=== PATIENT | male | born 1960 | race Native Hawaiian/Other Pacific Islander ===

== ENCOUNTER 2018-08-08 07:12 | Day surgery (SDC) | payer BC ==
[2018-08-08 08:22] LABS: PLATELET COUNT 333 K/uL (142-355)
[2018-08-08 08:35] LABS: POTASSIUM 3.9 mmol/L (3.6-5.2)
== END 2018-08-08 10:25 | disposition home or self-care (01) ==
LOC: OR 07:12
PROVIDERS: Student in an Organized Health Care Education/Training Program
PROC: 0DJ08ZZ Inspection of Upper Intestinal Tract, Via Natural or Artificial Opening Endoscopic (ICD-10-PCS; principal; 2018-08-08)
DX: I85.00 Esophageal varices without bleeding (principal); K44.9 Diaphragmatic hernia without obstruction or gangrene; K31.84 Gastroparesis; R10.13 Epigastric pain
CPT/HCPCS: 80053; 85027; J2001; J2250; J2704

== ENCOUNTER 2018-08-22 07:22 | Day surgery (SDC) | payer BC | END 2018-08-22 11:27 | disposition home or self-care (01) | LOC: OR 07:22 | PROC: 0DBP8ZZ Excision of Rectum, Via Natural or Artificial Opening Endoscopic (ICD-10-PCS; principal; 2018-08-22) | DX: K62.89 Other specified diseases of anus and rectum (principal); K64.9 Unspecified hemorrhoids; Z85.048 Personal history of other malignant neoplasm of rectum, rectosigmoid junction, and anus; R19.4 Change in bowel habit; Z12.11 Encounter for screening for malignant neoplasm of colon | CPT/HCPCS: J2001; J2250; J2704 ==